=== PATIENT | male | born 1995 | race Caucasian/White ===

== ENCOUNTER 2021-02-22 04:16 | Day surgery (SDC) | payer OTHER ==
[2021-02-20 12:59] VITALS: BMI 22.4
[2021-02-22] MEDS ORDERED: BUPIVACAINE HCL/PF 0.25% (2.5MG/ML) 10 ML VIAL ONE (07:13)
[2021-02-22] MEDS ORDERED: BACITRACIN 15 GM TUBE TOPICAL OINTMENT ONE (07:14)
[2021-02-22] MEDS ORDERED: PROPOFOL 20 ML ONE (07:31)
[2021-02-22] MEDS ORDERED: MIDAZOLAM HCL 2 MG/2 ML SINGLE DOSE VIAL ONE ×2 (07:31→07:45)
[2021-02-22] MEDS ORDERED: SUCCINYLCHOLINE CHLORIDE 200 MG/10 ML SYRINGE ONE (07:33)
[2021-02-22] MEDS ORDERED: VERAPAMIL HCL 5 MG/2 ML VIAL IVPUSH ONE (07:44)
[2021-02-22] MEDS ORDERED: ceFAZolin SODIUM 1 GM VIAL IVPB ONE (07:45)
[2021-02-22] MEDS ORDERED: BUPIVACAINE HCL/PF 0.25% (2.5MG/ML) 10 ML VIAL IJ ONE ×2 (07:58)
[2021-02-22] MEDS ORDERED: oxyCODONE HCL 5 MG TABLET PO PRN (08:27)
[2021-02-22] MEDS ORDERED: DEXTROSE 5%-0.45% SALINE 1,000 ML IV SCH (08:30)
[2021-02-22] MEDS ORDERED: ONDANSETRON 4 MG/2 ML VIAL IVPUSH PRN (08:31)
[2021-02-22] MEDS ORDERED: ACETAMINOPHEN 1000 MG/100 ML VIAL IVPB ONE (08:32)
[2021-02-22] MEDS ORDERED: LACTATED RINGERS SOLUTION 1,000 ML IV SCH (08:45)
[2021-02-22] MEDS ORDERED: oxyCODONE HCL 5 MG TABLET PO ONE (09:04)
[2021-02-22] MEDS ORDERED: ONDANSETRON 4 MG/2 ML VIAL ONE (09:59)
[2021-02-22 11:56] VITALS: BP 110/74; PULSE 88; TEMP 98.6
== END 2021-02-22 12:01 | disposition home or self-care (01) ==
LOC: JASU-SURG 04:16
PROVIDERS: ATTEND Urology
PROC: 0VNT0ZZ Release Prepuce, Open Approach (ICD-10-PCS; 2021-02-22)
PROC: 0VTTXZZ Resection of Prepuce, External Approach (ICD-10-PCS; principal; 2021-02-22 07:30)
DX: N47.1 Phimosis (principal); N47.5 Adhesions of prepuce and glans penis
CPT/HCPCS: 88304-TC; 94760; J0131